=== PATIENT | male | born 1950 | race Caucasian/White ===

== ENCOUNTER 2022-04-21 05:38 | Day surgery (SDC) | payer MEDICARE, OTHER ==
[~2022-04-21] VITALS: Ht 182.9 cm; Wt 136.4 kg
[~2022-04-21 05:38] MED LIST: CIPRO500 MG PO; DAILY VALUE1 EACH PO; FLOMAX0.4 MG PO; HYDROCODON-ACE1 EA10 PO; LIPITOR20 MG PO; METFORMIN HCL500 MG PO; OXYCODONE HCL5 MG PO; PROSCAR5 MG PO; TIKOSYN500 MCG PO; TOPROL XL25 MG PO; VITAMIN C1000 MG PO; XARELTO20 MG PO
--- NOTE | 2022-04-21 10:08 | NUR ---
04/21/22 1008 Emilee Solomon 0967 PT ARRIVED IN PACU SLEEPY WITH NO C/O'S. BLOOD SUGAR 167. NO NEW ORDERS. 09 CBI RUNNING WITH URINE PALE PINK COLORED. 0945 GLASSES RETURNED TO PT. 0955 TO ROOM 108. REPORT GIVEN TO CHARGE NURSE. BED PLUGGED IN.
[2022-04-21] MEDS ORDERED: FLOMAX0.4 MG PO (10:27)
[2022-04-21] MEDS ORDERED: METFORMIN HCL500 M1 PO (10:27)
[2022-04-21] MEDS ORDERED: DOFETILIDE500 MCG PO (10:29)
--- NOTE | 2022-04-21 11:01 | NUR ---
MED REC COMPLETE
--- NOTE | 2022-04-21 11:10 | NUR ---
PATIENT IS RESTING COMFORTABLEY IN BED, DENIES PAIN OR NAUSEA. SPOUSE IN ROOM. CBI AT SLOW DRIP, URINE IS CLEAR WITH SLIGHT PINK TINGE. IVF INFUSING. PO MEDICATIONS GIVEN. POST UP VITALS X2 COMPLETE.
--- NOTE | 2022-04-21 11:41 | NUR ---
BLADDER IRRIGATION IS OFF, 150ML OF URINE RECORDER. URINE REMAINS CLEAR WITH VERY LIGHT PINK TINGE. PATIENT DENIES PAIN.
--- NOTE | 2022-04-21 13:12 | NUR ---
PATIENT CBI CLAMPED AND PLUGGED. URINE IS YELLOW, SLIGHT PINK TINGE. CONTINUE TO REINFORCE LOAIZA CARE WITH PATIENT AND SPOUSE, INCLUDING EMPTYING LOAIZA AND REMOVING CATHETER AT HOME AFTER DISCHARGE. PLAN TO CONTINUE EDUCATING ON LOAIZA CARE. PATIENT CONTINUES TO DENY PAIN, NO NAUSEA AND IS TOLERATING A REGULAR DIET. PLAN TO GET COMMODE TO ROOM IN THE EVENT THAT PATIENT NEEDS TO BM.
--- NOTE | 2022-04-21 15:37 | NUR ---
THIS RN RECEIVED REPORT FROM ROXANE WYLIE AND THIS RN ASSUMING CARE AT THIS TIME. AFTERNOON ASSESSMENT COMPLETE. CBI HAS BEEN OFF SINCE 11:30AM AND PATIENT CONTINUES TO HAVE A DARKER COLORED CLEAR URINE COMING OUT INTO THE LOAIZA BAG. PATIENT DENIES PAIN AND HAS NO CURRENT CARE NEEDS AT THIS TIME. CALL LIGHT IS IN REACH.
[2022-04-21] MEDS ORDERED: LEVOFLOXACIN500 MG PO (15:49)
[2022-04-21] MEDS ORDERED: OXYCODONE HCL5 MG PO (15:51)
--- NOTE | 2022-04-21 17:02 | NUR ---
THIS RN IN TO COVER PATIENT WITH 1 UNIT INSULIN. PATIENT DENIED ANY OTHER CARE NEEDS AT THIS TIME. PATIENT AWAITING DINNER AND VISITING WITH HIS WHO IS IN THE ROOM. CALL LIGHT IS IN REACH.
--- NOTE | 2022-04-21 18:03 | NUR ---
NEW BAG OF SALINE HUNG PER ORDER TO KEEP PATIENT HYDRATED NOW THAT THE CBI HAS REMAINED OFF. THIS RN TAUGHT HOW TO EMPTY LOAIZA BAG FOR 400MLS WATERMELLON COLORED URINE. OK WITH GIVING A CATH BAG THAT IS MORE USER FRIENDLY FOR PATIENT TO GO HOME WITH TOMORROW. HERE IN THE ROOM TALKING WITH THE PATIENT AT THIS TIME. CALL LIGHT IS IN REACH.
--- NOTE | 2022-04-21 19:27 | NUR ---
REPORT RECEIVED FROM ROXANE BROOKS. pt RESTING IN BED. IVF INFUSING WNL. LOAIZA DRAINING PINK URINE INTO DRAINAGE BAG. AT SIDE OF BED. pt DENIES ANY PAIN OR NEEDS AT THIS TIME. CALL LIGHT IN REACH.
--- NOTE | 2022-04-21 21:15 | NUR ---
pt AWAKE IN BED WATCHING TV. DENIES PAIN. ASSESSMENT COMPLETE. LOAIZA CARE COMPLETE. pt EDUCATION PROVIDED. IV SITE FLUSHED WNL. CPOX IN PLACE. CALL LIGHT IN REACH. SCDS ON. ICE WATER REFILLED. NO ADDITIONAL REQUESTS.
--- NOTE | 2022-04-21 23:44 | NUR ---
CHECKED ON pt. RESTING IN BED WITH EYES CLOSED, SNORING. IVF INFUSING WNL. LOAIZA DRAINING PINK URINE. NO DISTRESS NOTED.
--- NOTE | 2022-04-22 02:32 | NUR ---
pt AWAKE WHEN RN ENTERS ROOM. DENIES PAIN, BLADDER SPASMS, COMPLAINS OF SLIGHT HEADACHE. DENIES PRN PAIN MEDICATION OFFERED. SNACK, ICE WATER PROVIDED. VSS. ASSESSMENT COMPLETE. LOAIZA DRAINING YELLOW URINE IN TUBING. pt ASKS IF HE CAN GET UP IN THE MORNING, pt OFFERED TO DANGLE TO SWITCH POSITIONS, EDUCATION PROVIDED ON BED REST. VERBALIZES UNDERSTANDING, pt STATES HE WOULD LIKE TO DANGLE IN THE AM. READING BOOK. NO ADDITIONAL REQUESTS. IVF IS INFUSING WNL.
--- NOTE | 2022-04-22 03:45 | NUR ---
RECEIVED REPORT FROM WM BETTS. PATIENT IS RESTING IN BED WITH EYES CLOSED, CPOX READINGS ARE WNL. PATIENTS CALL LIGHT IN REACH.
--- NOTE | 2022-04-22 05:29 | NUR ---
VITALS TAKEN AND RECORDED. LOAIZA EMPTIED AND CATH CARE COMPLETED. PATIENT RATES PAIN AT A 1/10, PRN PAIN MEDICATION GIVEN PER REQUEST AND PER ORDER. NO INTAKE AND OUTPUT RECORDED. IV INFUSING PER ORDER. NO FURTHER NEEDS NOTED. CALL LIGHT IN REACH.
--- NOTE | 2022-04-22 07:15 | NUR ---
REPORT RECEIVED FROM ROXANE GARCIA. PT SITTING UP IN BED WITH PAPERS IN HAND. PT REPORTS NO NEEDS AT THIS TIME. CALL LIGHT IN REACH.
--- NOTE | 2022-04-22 08:15 | NUR ---
Spoke with pt and his . They plan on dc to home today. Pt will dc with a sainz catheter in place. has written instructions on how to dc at home. They deny any needs or concerns. Appts are set up by Dr. Howard.
--- NOTE | 2022-04-22 08:24 | NUR ---
IN TO ADMINISTER MEDICATIONS. PT TAKES PO MEDICATIONS WITH NO ISSUES. PT SITTING UP IN BED. IV ABX STARTED. ASSESSMENT COMPLETE. URINE OUTPUT JOSH IN COLOR. LOAIZA BAG CHANGED. LOAIZA CATHETER CLEANED AND SECURED TO PTs LEG WITH SILK TAPE. AT BEDSIDE. HANDOUTS GIVEN. [place] ANSWERED. NO OTHER NEEDS AT THIS TIME. CALL LIGHT IN REACH.
--- NOTE | 2022-04-22 09:53 | NUR ---
DC INSTRUCTIONS GIVEN ALONG WITH HANDOUTS. PT AND VERBALIZED UNDERSTANDING. SUPPLIES TO REMOVE LOAIZA AT HOME GIVEN. EDUCATED ON HOW TO REMOVE LOAIZA AND VERBALIZES AND DEMONSTRATED UNDERSTANDING THAT 30CCs NEEDS TO BE REMOVED FROM LOAIZA BALLOON. CATHETER CARE INSTRUCTIONS GIVEN, PT AND VERBALIZED UNDERSTANDING. LOAIZA BAG EMPTIED BY TODD Ayala RN. FOLLOW UP APPOINTMENT CARD GIVEN. IV REMOVED, CATHETER INTACT. VSS. PT WHEELED OUT IN WHEELCHAIR BY CELSO HOLLOWAY.
--- NOTE | 2022-04-22 13:04 | OR ---
[facility] [address] [place], [place] [address] Signed DATE OF OPERATION: 04/21/2022 SURGEON: Sean El MD PREOPERATIVE DIAGNOSES: 1. 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 2. Reactive overactive bladder. POSTOPERATIVE DIAGNOSES: 1. 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 2. Reactive overactive bladder. NAME OF PROCEDURES: 1. Diagnostic cystoscopy. 2. Urethral dilation using Pep sounds, from 14-Nauruan to 28-Nauruan. 3. Transurethral resection of the prostate. ANESTHESIA: General. ESTIMATED BLOOD LOSS: 20 mL. COMPLICATIONS: None. SPECIMENS: Prostate chips sent to pathology for evaluation. DRAINS: A 22-Nauruan three-way Mckeon catheter, connected to continuous bladder irrigation. INDICATIONS FOR PROCEDURE: Mr. Valdovinos is very pleasant 71-year-old gentleman who has been experiencing lower urinary tract symptoms for a few years now. He currently takes Flomax twice daily along with finasteride for his symptoms. He underwent diagnostic cystoscopy which did reveal bilobar BPH with a significantly elevated bladder neck. He also experiences a good deal of urinary urgency and urge incontinence symptoms which I suspect are related to his long-standing bladder outlet obstruction. He has agreed to undergo a bipolar transurethral resection of the prostate today for definitive management of his bladder Electronically Signed By: SEAN EL MD 04/22/22 1304 PATIENT NAME: HAIDER VALDOVINOS OPERATIVE REPORT DATE OF : 46 REPORT #: [id number] PHYSICIAN: SEAN EL MD PCP: OTHER PCP REPORT IS CONFIDENTIAL AND NOT TO BE RELEASED WITHOUT AUTHORIZATION [facility] [address] [place], [place] [address] Signed outlet obstruction. The risks and benefits were discussed with the patient and his at the time of his office visit and they have agreed to proceed. OPERATIVE FINDINGS: 1. The patient's urethral meatus was dilated from 14-Nauruan to 28-Nauruan using Pep sounds without difficulty. 2. Diagnostic cystoscopy revealed no evidence of any suspicious masses, lesions, or stones. Bilateral ureteral orifices were noted to be in their normal anatomic location and were noted to not be adjacent to the bladder neck. 3. The patient's prostatic urethra was resected primarily at the level of the bladder neck as well as the lateral lobes of the prostate down to the level of the verumontanum. There was no median lobe present on exam. Also of note, the patient has a relatively long prostatic urethra which makes it slightly more difficult than usual to maneuver the resectoscope during surgery. 4. At the end of the procedure, a 22-Nauruan three-way Mckeon catheter was inserted into the patient's bladder and connected to continuous bladder irrigation. DESCRIPTION OF PROCEDURE: After informed consent was obtained, the patient was taken back to the operating room. [facility] room table, where general anesthesia was induced. He was placed in the dorsal lithotomy position and his genitalia were prepped and draped in a standard sterile fashion. His urethral meatus was dilated from 14-Nauruan to 28-Nauruan using Pep sounds. Using a 30-degree lens on a 22.5-Nauruan introducer, a rigid cystoscope was inserted through his urethra into his bladder under direct visualization. Panendoscopic view of the bladder was then obtained, please see above findings. I removed the rigid scope and then exchanged it for the resectoscope on a visual obturator. Once the resectoscope was in good position, I switched the obturator for the bipolar loop and began resecting the patient's significantly elevated bladder neck. All the while, I kept a good eye on the patient's bilateral ureteral orifices to be sure there was no iatrogenic injury to the structures. I then turned my attention to the left and then the right lateral lobe of the prostate. All three areas were thus resected down to the level just proximal to the verumontanum. The bipolar loop was also used to maintain hemostasis via cauterization. Throughout the procedure, I irrigated the patient's bladder using a Alec syringe to extract all the prostate chips from the patient's bladder. Towards the end the procedure, I switched from the bipolar loop to the bipolar button again to resect a little bit more tissue and also to promote additional hemostasis. Once I was satisfied that the patient's prostate and bladder neck had been resected properly, I removed the resectoscope and again copiously irrigated the patient's bladder to be sure there were no remaining prostate chips within the bladder. I then inserted a 0.035 Sensor wire through the sheath and into the patient's bladder. The sheath was removed fully intact, leaving the wire behind. Over the wire, I passed a 22-Nauruan three-way Mckeon catheter into the patient's bladder Electronically Signed By: SEAN EL MD 04/22/22 1304 PATIENT NAME: HAIDER VALDOVINOS OPERATIVE REPORT DATE OF : 46 REPORT #: [id number] PHYSICIAN: SEAN EL MD PCP: OTHER PCP REPORT IS CONFIDENTIAL AND NOT TO BE RELEASED WITHOUT AUTHORIZATION [address] [address] Signed without difficulty. The wire was removed and the catheter balloon was filled with 30 mL of water. The catheter was manually irrigated to confirm adequate placement and it irrigated quite nicely. The catheter was then connected to continuous bladder irrigation and the procedure was terminated. The patient tolerated the procedure well without any complication. He will now be transferred to the postanesthesia care unit in stable condition. DISPOSITION: I discussed the details of today's procedure with the patient's and answered all of her questions. He will stay the night here at the hospital to allow time for his CBI to be slowly weaned off. The plan is for him to be discharged to home tomorrow with his Mckeon catheter gravity drainage. Since he lives at least 2.5 hours away, he will not be coming in this for a voiding trial as per routine. Instead, his will be instructed on how to remove his indwelling Mckeon catheter this . He will be sent home today with Levaquin 500 mg p.o. daily for a total of eight days, along with oxycodone 5 mg one tablet p.o. q.6 hours p.r.n. pain, dispense #20. MD RITCHIE Briones/JOSE /[id number] Copies: ~ Electronically Signed By: SEAN EL MD 04/22/22 1304 PATIENT NAME: HAIDER VALDOVINOS OPERATIVE REPORT DATE OF : 46 REPORT #: [id number] PHYSICIAN: SEAN EL MD PCP: OTHER PCP REPORT IS CONFIDENTIAL AND NOT TO BE RELEASED WITHOUT AUTHORIZATION
--- NOTE | 2022-04-24 21:47 | PATH ---
[facility] [address] [place], [place] [address] Signed SPECIMEN(S): A PROSTATE CHIPS SPECIMEN SOURCE: A. PROSTATE CHIPS CLINICAL HISTORY: BPH with LUTS; obstructive and reflux uropathy. TURP. FINAL PATHOLOGIC DIAGNOSIS: Prostate chips, transurethral resection: - Fragments of benign prostatic tissue demonstrating prostatic glandular and stromal hyperplasia, consistent with features seen in benign prostatic hyperplasia. TWK:mariano:C2NR MICROSCOPIC EXAMINATION: Histologic sections of all submitted blocks are examined by light microscopy. These findings, together with the gross examination, support the pathologic diagnosis. GROSS DESCRIPTION: The specimen, labeled "DD, prostate chips," is received in formalin and consists of irregular shaped, pink-trevino, rubbery tissue fragments that aggregate measure 4.0 x 3.2 x 0.5 cm. The specimen weighs 4 g. Specimen is entirely submitted in cassettes (A1-A3). JS (under the direct supervision of a pathologist) The Gross Description was prepared using a voice recognition system. The report was reviewed for accuracy; however, sound-alike word errors, addition and/or deletions may occur. If there is any question about this report, please contact Client Services. PERFORMING LABORATORY: The technical component was performed by [facility], [address] [place] [id number] (CLIA# [id number]). The professional interpretation was performed by [facility], [facility], [address] [place] [address] (CLIA#: [id number]). Diagnostician: Samson Joseph MD Pathologist Electronically Signed 04/24/2022 PATIENT NAME: HAIDER VALDOVINOS PATHOLOGY DATE OF : 46 REPORT #: [id number] PHYSICIAN: [facility] PCP: OTHER PCP REPORT IS CONFIDENTIAL AND NOT TO BE RELEASED WITHOUT AUTHORIZATION [address] [address] Signed Copies: ~ PATIENT NAME: HAIDER VALDOVINOS PATHOLOGY DATE OF : 46 REPORT #: [id number] PHYSICIAN: [facility] PCP: OTHER PCP REPORT IS CONFIDENTIAL AND NOT TO BE RELEASED WITHOUT AUTHORIZATION
--- NOTE | 2022-04-25 14:09 | NUR ---
PATIENT LEFT MESSAGE IN RETURNING MY CALL. STATED HE IS DOING WELL. HAS NO CONCERNS. TRIED TO CALL HIM AGAIN BUT LEFT MESSAGE AGAIN.
== END 2022-04-22 09:53 | disposition home or self-care (01) ==
LOC: DS 05:38 → MS 10:00 → DS 11:00
PROVIDERS: ATTEND Urology
PROC: 0VT08ZZ Resection of Prostate, Via Natural or Artificial Opening Endoscopic (ICD-10-PCS; principal; 2022-04-21 07:30)
DX: N40.1 Benign prostatic hyperplasia with lower urinary tract symptoms (principal); N39.41 Urge incontinence; N32.81 Overactive bladder; N13.8 Other obstructive and reflux uropathy; I10 Essential (primary) hypertension; I48.91 Unspecified atrial fibrillation; E66.9 Obesity, unspecified; Z20.822 Contact with and (suspected) exposure to COVID-19; Z79.01 Long term (current) use of anticoagulants; Z88.0 Allergy status to penicillin; Z88.8 Allergy status to other drugs, medicaments and biological substances; Z68.41 Body mass index [BMI] 40.0-44.9, adult; Z87.442 Personal history of urinary calculi
CPT/HCPCS: 00914; 87502; 88305; C1769; J0131; J0330; J0690; J0696; J1815; J2001; J2405; J2704; J3010; J7030; J7121; U0003